=== PATIENT | male | born 1990 | race Caucasian/White ===

== ENCOUNTER 2018-10-05 15:03 | Emergency (ER) | payer MEDICAID ==
[~2018-10-05] VITALS: Ht 180.3 cm; Wt 78.0 kg
[2018-10-05 15:25] VITALS: Ht 180.3 cm; Wt 78.0 kg
[2018-10-05 15:49] LABS: BASOPHIL % 0.4 % (0-2); PLATELET COUNT 225 x10^3mcL (130-400); RED CELL DISTRIBUTION WIDTH 12.9 % (11.5-14.5)
[2018-10-05 15:57] LABS: CALCIUM 9.9 mg/dL (8.5-10.1); CARBON DIOXIDE 25.9 mmol/L (21-32); CHLORIDE SERUM 101 mmol/L (98-107); GFR1 > 60 mL/min; GLUCOSE SERUM 98 mg/dL (74-106); POTASSIUM SERUM 3.6 mmol/L (3.5-5.1); SODIUM SERUM 140 mmol/L (136-145)
[2018-10-05 16:10] LABS: ALBUMIN 4.2 g/dL (3.4-5.0); ALKALINE PHOSPHATASE 79 U/L (46-116); ALT/SGPT 27 U/L (16-63); AMYLASE 43 U/L (25-115); AST/SGOT 15 U/L (15-37); BILIRUBIN TOTAL 0.86 mg/dL (0.20-1.00); CHOLESTEROL 159 mg/dL (<200); HDL CHOLESTEROL 54 mg/dL (40-60); LIPASE 55 IU/L (73-393); MAGNESIUM 1.6 mg/dL (1.8-2.4); TOTAL PROTEIN, SERUM 7.8 g/dL (6.4-8.2)
[2018-10-05 17:05] LABS: microscopic required? YES; urine erythrocyte NEGATIVE (NEGATIVE)
[2018-10-05 17:30] VITALS: BP 127/88
[2018-10-05 17:30] LABS: AMPHETAMINE QUAL UR NONE DETECTED (See below)
== END 2018-10-05 17:30 | disposition home or self-care (01) ==
LOC: ED 15:03
PROVIDERS: Emergency Medicine
DX: R55 Syncope and collapse (principal); R61 Generalized hyperhidrosis; R20.2 Paresthesia of skin; R42 Dizziness and giddiness
CPT/HCPCS: 83880; J7030